=== PATIENT | female | born 1985 | race Caucasian/White ===

== ENCOUNTER 2016-12-13 08:09 | Emergency (ER) | payer OTHER ==
[~2016-12-13] VITALS: Ht 167.6 cm; Wt 56.0 kg
[~2016-12-13 08:09] MED LIST: DICL-86 PO; TAB-TAB PO
[2016-12-13 08:12] VITALS: BP 98/70; PULSE 98; RESP 15; TEMP 98.4; O2SAT 96
[2016-12-13] MEDS ORDERED: SODIUM CHLOR 0.9% 1000 ML INJ 1,000 ML IV SCH (08:46)
[2016-12-13] MEDS ORDERED: ONDANSETRON HCL 4 MG/2 ML VIAL IVP ONE (09:00)
[2016-12-13] MEDS ORDERED: SODIUM CHLORIDE 0.9% FLUSH 10 ML FLUSH IV FLUSH PRN (09:00)
--- NOTE | 2016-12-13 09:31 | RADRPT ---
EXAM DATE/TIME: 12/13/2016 09:04 [place] COMPARISON: No previous studies available for comparison. INDICATIONS : Possible obstruction, nausea, constipation MEDICAL HISTORY : None. SURGICAL HISTORY : None. ENCOUNTER: Initial ACUITY: 1 week PAIN SCORE: 0/10 LOCATION: Bilateral abdomen FINDINGS: Supine and upright views of the abdomen were performed. The abdominal bowel gas pattern is normal. No air fluid levels are seen. No abnormal masses, calcifications, or organomegaly is seen. The visu alized lower lungs are clear. No evidence of free intraperitoneal gas. There is a focus of sclerosis involving the right superior acetabulum consistent with probable bone island. If there is pain relat ed to this site, bone scan may be helpful for further evaluation. CONCLUSION: 1. No evidence of bowel obstruction, ileus or perforation. 2. Focal area sclerosis involving the right superior acetabulum consistent with probable bone island. If there is pain related to this site, bone scan may be helpful for further evaluation. Babak Kearney MD on December 13, 2016 at 9:26 Board Certified Radiologist. This report was verified electronically.
--- NOTE | 2016-12-13 09:36 | PD ---
HPI Chief Complaint: GI Complaint Time Seen by Provider: 08:40 Travel History International Travel<30 days: No Contact w/Intl Traveler<30days: No Traveled to known affect area: No History of Present Illness HPI 31-year-old female came to the emergency room with history of constipation for past 11 days. Patient says that she has not had bowel movement in past 11 days. Her appetite is progressively decreased. She feels like her transverse colon is impacted, she has pain near her gallbladder and her esophagus. Patient has been taking [id number] vegan pills with probiotics in them which are supposed to be laxative as well. However she has not had much results except for some watery stool coming out. She has been nauseous but has not had any vomiting. She is otherwise a healthy person. She looks anxious but did not look to be in severe distress. Patient says that her last food that she took was yesterday some broccoli. PFSH Past Medical History Narrative Medical List of her past medical, surgical, social and family history is reviewed from the nursing note. 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 Reported Meds & Prescriptions Reported Meds & Active Scripts Active Miralax Powder (Polyethylene Glycol 3350 Powder) 17 Gm Powd 17 Gm PO DAILY Mix and dissolve one measuring cap-ful (17 grams) in water or juice. Narrative Medication List of her home medications reviewed from the nursing note. Review of Systems Except as stated in HPI: all other systems reviewed are Neg Physical Exam Narrative GENERAL: Awake, alert, anxious, no obvious distress SKIN: Focused skin assessment warm/dry. HEAD: Atraumatic. Normocephalic. EYES: Pupils equal and round. No scleral icterus. No injection or drainage. ENT: No nasal bleeding or discharge. Mucous membranes pink and moist. NECK: Trachea midline. No JVD. CARDIOVASCULAR: Regular rate and rhythm. No murmur appreciated. RESPIRATORY: No accessory muscle use. Clear to auscultation. Breath sounds equal bilaterally. GASTROINTESTINAL: Abdomen soft, non-tender, nondistended. Hepatic and splenic margins not palpable. MUSCULOSKELETAL: No obvious deformities. No clubbing. No cyanosis. No edema. NEUROLOGICAL: Awake and alert. No obvious cranial nerve deficits. Motor grossly within normal limits. Normal speech. PSYCHIATRIC: Appropriate mood and affect; insight and judgment normal. Data Data Last Documented VS Vital Signs Date Time Temp Pulse Resp B/P Pulse Ox O2 Delivery O2 Flow Rate FiO2 12/13/16 08:12 98.4 98 15 98/70 96 Orders Complete Blood Count With Diff (12/13/16 08:46) Comprehensive Metabolic Panel (12/13/16 08:46) Lipase (12/13/16 08:46) Urinalysis - C+S If Indicated (12/13/16 08:46) Abdomen, Flat & Upright (12/13/16 ) Iv Access Insert/Monitor (12/13/16 08:46) Ecg Monitoring (12/13/16 08:46) Oximetry (12/13/16 08:46) Ondansetron Inj (Zofran Inj) (12/13/16 09:00) Sodium Chlor 0.9% 1000 Ml Inj (Ns 1000 M (12/13/16 08:46) Sodium Chloride 0.9% Flush (Ns Flush) (12/13/16 09:00) Ed Urine Pregnancytest Poc (12/13/16 08:46) Labs Laboratory Tests Test 12/13/16 12/13/16 09:20 09:25 White Blood Count 5.0 TH/MM3 Red Blood Count 4.36 MIL/MM3 Hemoglobin 13.6 GM/DL Hematocrit 38.5 % Mean Corpuscular Volume 88.3 FL Mean Corpuscular Hemoglobin 31.2 PG Mean Corpuscular Hemoglobin 35.3 % Concent Red Cell Distribution Width 12.3 % Platelet Count 205 TH/MM3 Mean Platelet Volume 8.0 FL Neutrophils (%) (Auto) 61.9 % Lymphocytes (%) (Auto) 25.6 % Monocytes (%) (Auto) 10.2 % Eosinophils (%) (Auto) 1.6 % Basophils (%) (Auto) 0.7 % Neutrophils # (Auto) 3.1 TH/MM3 Lymphocytes # (Auto) 1.3 TH/MM3 Monocytes # (Auto) 0.5 TH/MM3 Eosinophils # (Auto) 0.1 TH/MM3 Basophils # (Auto) 0.0 TH/MM3 CBC Comment DIFF FINAL Differential Comment Sodium Level 142 MEQ/L Potassium Level 3.7 MEQ/L Chloride Level 105 MEQ/L Carbon Dioxide Level 28.9 MEQ/L Anion Gap 8 MEQ/L Blood Urea Nitrogen 7 MG/DL Creatinine 0.80 MG/DL Estimat Glomerular Filtration 83 ML/MIN Rate Random Glucose 88 MG/DL Calcium Level 9.2 MG/DL Total Bilirubin 0.8 MG/DL Aspartate Amino Transf 19 U/L (AST/SGOT) Alanine Aminotransferase 35 U/L (ALT/SGPT) Alkaline Phosphatase 67 U/L Total Protein 7.1 GM/DL Albumin 4.0 GM/DL Lipase 356 U/L Urine Color YELLOW Urine Turbidity CLEAR Urine pH 8.0 Urine Specific [place] 1.007 Urine Protein NEG mg/dL Urine Glucose (UA) NEG mg/dL Urine Ketones NEG mg/dL Urine Occult Blood NEG Urine Nitrite NEG Urine Bilirubin NEG Urine Urobilinogen LESS THAN 2.0 MG/DL Urine Leukocyte Esterase NEG Urine RBC LESS THAN 1 /hpf Microscopic Urinalysis Comment CULT NOT INDICATED MDM Medical Decision Making Medical Screen Exam Complete: Yes Emergency Medical Condition: Yes Medical Record Reviewed: Yes Differential Diagnosis Constipation, dehydration, electrolyte abnormality Narrative Course 9:35 AM awaiting for the blood test results and x-ray result. Patient is getting IV fluid bolus and IV Zofran. 10:18 AM the x-ray and the blood test results appear to be within normal limits. I'll discharge her home. Procedures EKG Prior to Arrival: No Diagnosis Primary Impression: Constipation Qualified Code: K59.00 - Constipation, unspecified constipation type Referrals: Primary Care Physician Additional Instructions: Please take the medication prescribed to you as per the direction. Eat food with more bulk and fiber content. Return to the ER if the condition worsens or any other concerns. Otherwise follow-up with your primary care. Drink lots of fluid. Med/Other Pt SpecificInfo: Prescription(s) given Scripts Polyethylene Glycol 3350 Powder (Miralax Powder)17 Gm Powd17 Gm PO DAILY #1 CAN Ref 0 Mix and dissolve one measuring cap-ful (17 grams) in water or juice. Prov:Alexandria Garcia MD 12/13/16 Disposition: 01 DISCHARGE HOME Condition: Stable Alexandria Garcia MD Dec 13, 2016 09:36 Alexandria Garcia MD Dec 13, 2016 09:36
[2016-12-13 09:56] LABS: BLOOD, URINE NEG (NEG); GLUCOSE,URINE NEG (NEG); KETONE, URINE NEG (NEG); NITRITE,URINE NEG (NEG); URINE COLOR YELLOW (YELLW/STRAW)
[2016-12-13 10:06] LABS: AUTOMATED NEUTROPHIL # 3.1 TH/MM3 (1.8-7.7); BASOPHIL % 0.7 % (0.0-2.0); EOSINOPHIL # 0.1 TH/MM3 (0-0.4); EOSINOPHIL % 1.6 % (0.0-4.0); HEMATOCRIT 38.5 % (35.0-46.0); HEMO FLAGS DIFF FINAL; LYMPH % 25.6 % (9.0-44.0); LYMPHOCYTE # 1.3 TH/MM3 (1.0-4.8); MEAN CELL VOLUME 88.3 FL (80.0-100.0); MEAN CORPUSCULAR HEMOGLOBIN 31.2 PG (27.0-34.0); MEAN CORPUSCULAR HGB CONC 35.3 % (32.0-36.0); MONO % 10.2 % (0.0-8.0); NEUT % 61.9 % (16.0-70.0); PLATELET COUNT 205 TH/MM3 (150-450); RED BLOOD COUNT 4.36 MIL/MM3 (4.00-5.30); RED CELL DISTRIBUTION WIDTH 12.3 % (11.6-17.2)
[2016-12-13 10:09] LABS: COMMENT (UR) CULT NOT INDICATED; CULTURE IF INDICATED CULT NOT INDICATED
[2016-12-13 10:12] LABS: ALT (GPT) 35 U/L (10-53); ANION GAP 8 MEQ/L (5-15); AST (GOT) 19 U/L (15-37); BICARBONATE 28.9 MEQ/L (21.0-32.0); BLOOD UREA NITROGEN 7 MG/DL (7-18); CHLORIDE 105 MEQ/L (98-107); GLOMERULAR FILTRATION RATE 83 ML/MIN (>89); POTASSIUM 3.7 MEQ/L (3.5-5.1); SODIUM (NA) 142 MEQ/L (136-145)
[2016-12-13 10:16] LABS: ALKALINE PHOSPHATASE 67 U/L (45-117); TOTAL BILIRUBIN ADULT 0.8 MG/DL (0.2-1.0)
[2016-12-13] MEDS ORDERED: MIRA3350 PO (10:19)
== END 2016-12-13 10:46 | disposition home or self-care (01) ==
LOC: NEPC 08:09
DX: K59.00 Constipation, unspecified (principal); E86.0 Dehydration
CPT/HCPCS: 74020; 80053; 81001; 83690; 84703; 85025; 96360; 99284; J7030